=== PATIENT | female | born 1975 | race Caucasian/White ===

== ENCOUNTER 2017-01-01 11:55 | Emergency (ER) | payer MEDICAID ==
[2017-01-01 12:17] VITALS: BP 128/83
--- NOTE | 2017-01-01 13:29 | EDM.PDOC ---
ED HPI GENERAL MEDICAL PROBLEM - General Chief Complaint: Chest Pain Stated Complaint: [facility] Time Seen by Provider: 01/01/17 12:05 Source of Information: Reports: Patient, RN, RN Notes Reviewed History Limitations: Reports: Uncooperative - History of Present Illness INITIAL COMMENTS - FREE TEXT/NARRATIVE: When asked what brings the patient to the ED, the patient stated "I don't remember anything." When asked what was the last thing that she does remember, she stated that she remembers lying on her bed. When asked if she remembers how she got to the ED, she shrugged her shoulders, then said that her called EMS. When asked why, she said she did not know. EMS reported that the patient's called them due to the patient complaining of chest pain. When they arrived, they found the patient to be hyperventilating with an apparent anxiety attack. Here in the ED, she complained of chest pain rated 8/10, and a headache. At this time, the patient has no complaints. Information gathered later was that the patient was taking care of a 3-month- old infant, when apparently the baby lurched backwards. The baby cried incessantly. The patient contacted the baby's parents and instructed them to come and get the baby, as she was concerned that the baby may have "thrown her back out". The parents of the baby (who was brought to the ED) states that when they arrived, the baby was not crying, but that the patient was hysterical , and shortly after their arrival, the patient was taken by EMS to this hospital. There was concern by the babies parents at that perhaps the patient had harmed the baby. Right Chest Pain Score (Numeric/FACES): 8 Headache Pain Score (Numeric/FACES): 10 - Related Data Allergies Allergy/AdvReac Type Severity Reaction Status Date / Time venlafaxine HCl Allergy Intermediate Shaking Verified 07/29/16 21:39 [From Effexor] latex Allergy Unknown Hives Verified 01/01/17 12:17 Home Meds: Home Meds Amitriptyline [Elavil] 75 mg PO BEDTIME 12/22/13 [History] SUMAtriptan [Imitrex] 0 mg PO ONCALL PRN 12/03/15 [History] buPROPion HCl [Wellbutrin Xl] 300 mg PO DAILY 12/03/15 [History] Levothyroxine [Synthroid] 100 mcg PO DAILY 07/29/16 [History] Past Medical History HEENT History: Reports: Impaired Vision Other HEENT History: wears eyeglasses 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 RN History: Reports: Musculoskeletal History: Reports: Fracture Neurological History: Reports: Migraines Psychiatric History: Reports: Depression Endocrine/Metabolic History: Reports: Diabetes, Gestational, Hypothyroidism, Obesity/BMI 30+ Hematologic History: Reports: Anemia - Infectious Disease History Infectious Disease History: Reports: Chicken Pox - Past Surgical History HEENT Surgical History: Reports: Oral Surgery (Dental extractions) GI Surgical History: Reports: Cholecystectomy Female Surgical History: Reports: Breast Reduction, Tubal Ligation Musculoskeletal Surgical History: Reports: Arthroscopic Knee (bilateral) Social & Family History - Family History Family Medical History: Noncontributory - Tobacco Use Smoking Status *Q: Never Smoker - Caffeine Use Caffeine Use: Reports: None - Alcohol Use Alcohol Use History: Yes Alcohol Use Frequency: Rarely - Recreational Drug Use Recreational Drug Use: No - Living Situation & Occupation Living situation: Reports: , with Spouse, with Family (Daughter) 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) ED ROS GENERAL - Review of Systems Review Of Systems: See Below Constitutional: Reports: No Symptoms HEENT: Reports: No Symptoms Respiratory: Reports: No Symptoms Cardiovascular: Reports: No Symptoms Endocrine: Reports: No Symptoms GI/Abdominal: Reports: No Symptoms : Reports: No Symptoms Musculoskeletal: Reports: No Symptoms Skin: Reports: No Symptoms Neurological: Reports: No Symptoms Psychiatric: Reports: No Symptoms Hematologic/Lymphatic: Reports: No Symptoms Immunologic: Reports: No Symptoms ED EXAM, GENERAL - Physical Exam Exam: See Below Exam Limited By: No Limitations General Appearance: Alert, WD/WN, No Apparent Distress Eye Exam: Bilateral Eye: Normal Inspection Ears: Normal External Exam, Hearing Grossly Normal Ear Exam: Bilateral Ear: Auricle Normal Nose: Normal Inspection, No Blood Throat/Mouth: Normal Inspection, Normal Lips, Normal Voice, No Airway Compromise Head: Atraumatic, Normocephalic Neck: Normal Inspection, Full Range of Motion Respiratory/Chest: No Respiratory Distress, Lungs Clear, Normal Breath Sounds, No Accessory Muscle Use Cardiovascular: Normal Peripheral Pulses, Regular Rate, Rhythm, No Gallop, No JVD, No Murmur, No Rub Peripheral Pulses: 4+: Radial (L), Radial (R) GI/Abdominal: Normal Bowel Sounds, Soft, Non-Tender, No Organomegaly, No Distention, No Abnormal Bruit, No Mass, Other (Obese) (Female) Exam: Deferred Rectal (Female) Exam: Deferred Back Exam: Normal Inspection, Full Range of Motion, NT Extremities: Normal Inspection, Normal Range of Motion, No Pedal Edema, Normal Capillary Refill Neurological: Alert, Oriented, Normal Cognition, No Motor/Sensory Deficits Psychiatric: Flat Affect, Other (Speaks quietly, then suddenly speaks very loudly, almost yelling) Skin Exam: Warm, Dry, Intact, Normal Color, No Rash Lymphatic: No Adenopathy EKG INTERPRETATION EKG Date: 01/01/17 Time: 12:33 Rhythm: other (Sinus tachycardia) Rate (beats/min): 108 Orgas: normal P-wave: present QRS: normal ST-T: normal QT: normal Comparison: no change (12/07/2015) Course - Vital Signs Last Recorded V/S: Last Vital Signs Temp 37.4 C 01/01/17 12:12 Pulse 105 H 01/01/17 12:12 Resp 20 01/01/17 12:12 BP 128/83 01/01/17 12:12 Pulse Ox 97 01/01/17 12:12 Orthostatic Blood Pressure [ 108/74 Standing] Orthostatic Blood Pressure [ 125/90 Sitting] Orthostatic Blood Pressure [ 122/87 Supine] - Orders/Labs/Meds Orders: Active Orders 24 hr Category Date Time Status EKG Documentation Completion [RC] STAT Care 01/01/17 12:15 Active Orthostatic Vital Signs [RC] STAT Care 01/01/17 12:17 Active Orthostatic Vital Signs [RC] STAT Care 01/01/17 13:44 Active Labs: Laboratory Tests 01/01/17 01/01/17 01/01/17 Range/Units 12:16 13:05 13:05 WBC 7.49 (3.98-10.04) K/mm3 RBC 4.52 (3.98-5.22) M/mm3 Hgb 13.3 (11.2-15.7) gm/L Hct 40.2 (34.1-44.9) % MCV 88.9 (79.4-94.8) fl MCH 29.4 (25.6-32.2) pg MCHC 33.1 (32.2-35.5) g/dl RDW Std Deviation 47.1 H (36.4-46.3) fL Plt Count 254 (182-369) K/mm3 MPV 9.6 (9.4-12.3) fl Neutrophils % (Manual) 69 H (40-60) % Band Neutrophils % 3 (0-10) % Lymphocytes % (Manual) 16 L (20-40) % Atypical Lymphs % 0 % Monocytes % (Manual) 7 (2-10) % Eosinophils % (Manual) 4 (0.7-5.8) % Basophils % (Manual) 1 (0.1-1.2) Platelet Estimate See note RBC Morph Comment Normal PT 10.1 (8.0-13.0) SECONDS INR 0.93 APTT 25 (22-36) SECONDS D-Dimer, Quantitative 0.20 (0.19-0.59) mg/L Puncture Site Rt radial ABG pH 7.43 (7.35-7.45) ABG pCO2 32.3 L (35.0-45.0) mmHg ABG pO2 67.0 L (80.0-100.0) mmHg ABG HCO3 21.2 L (22.0-26.0) meq/L ABG O2 Saturation 95.1 L (96.0-97.0) % ABG Base Excess -1.8 (-2-2.0) Manuel Test Positive A-a Gradient 27 mmHg O2 Delivery Device Room air FiO2 21.00 (21.00-100.00) % Sodium (136-145) mEq/L Potassium (3.5-5.1) mEq/L Chloride (98-107) mEq/L Carbon Dioxide (21-32) mEq/L Anion Gap (5-15) BUN (7-18) mg/dL Creatinine (0.55-1.02) mg/dL Est Cr Clr Drug Dosing Estimated GFR (MDRD) (>60) mL/min BUN/Creatinine Ratio (14-18) Glucose (74-106) mg/dL Calcium (8.5-10.1) mg/dL Magnesium (1.8-2.4) mg/dl Total Bilirubin (0.2-1.0) mg/dL AST (15-37) U/L ALT (14-59) U/L Alkaline Phosphatase (46-116) U/L Troponin I (0.00-0.056) ng/mL B-Natriuretic Peptide (0-100) pg/mL Total Protein (6.4-8.2) g/dl Albumin (3.4-5.0) g/dl Globulin gm/dL Albumin/Globulin Ratio (1-2) TSH 3rd Generation (0.358-3.74) uIU/mL Urine Color (Yellow) Urine Appearance (Clear) Urine pH (5.0-8.0) Ur Specific Edelstein (1.005-1.030) Urine Protein (Negative) Urine Glucose (UA) (Negative) Urine Ketones (Negative) Urine Occult Blood (Negative) Urine Nitrite (Negative) Urine Bilirubin (Negative) Urine Urobilinogen (0.2-1.0) Ur Leukocyte Esterase (Negative) Urine RBC (0-5) /hpf Urine WBC (0-5) /hpf Ur Epithelial Cells Ur Squamous Epith Cells (0-5) /hpf Urine Bacteria (FEW) /hpf Urine Mucus (FEW) /hpf Urine HCG, Qual (NEGATIVE) 01/01/17 01/01/17 01/01/17 Range/Units 13:05 13:05 13:15 WBC (3.98-10.04) K/mm3 RBC (3.98-5.22) M/mm3 Hgb (11.2-15.7) gm/L Hct (34.1-44.9) % MCV (79.4-94.8) fl MCH (25.6-32.2) pg MCHC (32.2-35.5) g/dl RDW Std Deviation (36.4-46.3) fL Plt Count (182-369) K/mm3 MPV (9.4-12.3) fl Neutrophils % (Manual) (40-60) % Band Neutrophils % (0-10) % Lymphocytes % (Manual) (20-40) % Atypical Lymphs % % Monocytes % (Manual) (2-10) % Eosinophils % (Manual) (0.7-5.8) % Basophils % (Manual) (0.1-1.2) Platelet Estimate RBC Morph Comment PT (8.0-13.0) SECONDS INR APTT (22-36) SECONDS D-Dimer, Quantitative (0.19-0.59) mg/L Puncture Site ABG pH (7.35-7.45) ABG pCO2 (35.0-45.0) mmHg ABG pO2 (80.0-100.0) mmHg ABG HCO3 (22.0-26.0) meq/L ABG O2 Saturation (96.0-97.0) % ABG Base Excess (-2-2.0) Manuel Test A-a Gradient mmHg O2 Delivery Device FiO2 (21.00-100.00) % Sodium 140 (136-145) mEq/L Potassium 4.5 (3.5-5.1) mEq/L Chloride 105 (98-107) mEq/L Carbon Dioxide 26 (21-32) mEq/L Anion Gap 13.5 (5-15) BUN 9 (7-18) mg/dL Creatinine 0.9 (0.55-1.02) mg/dL Est Cr Clr Drug Dosing TNP Estimated GFR (MDRD) > 60 (>60) mL/min BUN/Creatinine Ratio 10.0 L (14-18) Glucose 99 (74-106) mg/dL Calcium 9.1 (8.5-10.1) mg/dL Magnesium 2.4 (1.8-2.4) mg/dl Total Bilirubin 0.3 (0.2-1.0) mg/dL AST 20 (15-37) U/L ALT 33 (14-59) U/L Alkaline Phosphatase 99 (46-116) U/L Troponin I < 0.017 (0.00-0.056) ng/mL B-Natriuretic Peptide < 15 (0-100) pg/mL Total Protein 7.9 (6.4-8.2) g/dl Albumin 3.5 (3.4-5.0) g/dl Globulin 4.4 gm/dL Albumin/Globulin Ratio 0.8 L (1-2) TSH 3rd Generation 3.568 (0.358-3.74) uIU/mL Urine Color (Yellow) Urine Appearance (Clear) Urine pH (5.0-8.0) Ur Specific Edelstein (1.005-1.030) Urine Protein (Negative) Urine Glucose (UA) (Negative) Urine Ketones (Negative) Urine Occult Blood (Negative) Urine Nitrite (Negative) Urine Bilirubin (Negative) Urine Urobilinogen (0.2-1.0) Ur Leukocyte Esterase (Negative) Urine RBC (0-5) /hpf Urine WBC (0-5) /hpf Ur Epithelial Cells Ur Squamous Epith Cells (0-5) /hpf Urine Bacteria (FEW) /hpf Urine Mucus (FEW) /hpf Urine HCG, Qual Negative (NEGATIVE) 01/01/17 Range/Units 13:15 WBC (3.98-10.04) K/mm3 RBC (3.98-5.22) M/mm3 Hgb (11.2-15.7) gm/L Hct (34.1-44.9) % MCV (79.4-94.8) fl MCH (25.6-32.2) pg MCHC (32.2-35.5) g/dl RDW Std Deviation (36.4-46.3) fL Plt Count (182-369) K/mm3 MPV (9.4-12.3) fl Neutrophils % (Manual) (40-60) % Band Neutrophils % (0-10) % Lymphocytes % (Manual) (20-40) % Atypical Lymphs % % Monocytes % (Manual) (2-10) % Eosinophils % (Manual) (0.7-5.8) % Basophils % (Manual) (0.1-1.2) Platelet Estimate RBC Morph Comment PT (8.0-13.0) SECONDS INR APTT (22-36) SECONDS D-Dimer, Quantitative (0.19-0.59) mg/L Puncture Site ABG pH (7.35-7.45) ABG pCO2 (35.0-45.0) mmHg ABG pO2 (80.0-100.0) mmHg ABG HCO3 (22.0-26.0) meq/L ABG O2 Saturation (96.0-97.0) % ABG Base Excess (-2-2.0) Manuel Test A-a Gradient mmHg O2 Delivery Device FiO2 (21.00-100.00) % Sodium (136-145) mEq/L Potassium (3.5-5.1) mEq/L Chloride (98-107) mEq/L Carbon Dioxide (21-32) mEq/L Anion Gap (5-15) BUN (7-18) mg/dL Creatinine (0.55-1.02) mg/dL Est Cr Clr Drug Dosing Estimated GFR (MDRD) (>60) mL/min BUN/Creatinine Ratio (14-18) Glucose (74-106) mg/dL Calcium (8.5-10.1) mg/dL Magnesium (1.8-2.4) mg/dl Total Bilirubin (0.2-1.0) mg/dL AST (15-37) U/L ALT (14-59) U/L Alkaline Phosphatase (46-116) U/L Troponin I (0.00-0.056) ng/mL B-Natriuretic Peptide (0-100) pg/mL Total Protein (6.4-8.2) g/dl Albumin (3.4-5.0) g/dl Globulin gm/dL Albumin/Globulin Ratio (1-2) TSH 3rd Generation (0.358-3.74) uIU/mL Urine Color Light yellow (Yellow) Urine Appearance Slt cloudy H (Clear) Urine pH 6.0 (5.0-8.0) Ur Specific Edelstein 1.010 (1.005-1.030) Urine Protein Negative (Negative) Urine Glucose (UA) Negative (Negative) Urine Ketones Negative (Negative) Urine Occult Blood 3+ H (Negative) Urine Nitrite Negative (Negative) Urine Bilirubin Negative (Negative) Urine Urobilinogen 0.2 (0.2-1.0) Ur Leukocyte Esterase 1+ H (Negative) Urine RBC 20-30 H (0-5) /hpf Urine WBC 5-10 H (0-5) /hpf Ur Epithelial Cells Not Reportable Ur Squamous Epith Cells 10-20 H (0-5) /hpf Urine Bacteria Few (FEW) /hpf Urine Mucus Not seen (FEW) /hpf Urine HCG, Qual (NEGATIVE) Meds: Medications Discontinued Medications Generic Name Dose Route Start Last Admin Trade Name Freq PRN Reason Stop Dose Admin Sodium Chloride 1,000 mls @ 999 mls/hr 01/01/17 13:44 01/01/17 14:03 Normal Saline IV 01/01/17 14:44 999 mls/hr ONETIME ONE Administration - Radiology Interpretation Free Text/Narrative:: Two-view chest radiograph appears to be grossly normal. Cardiac silhouette is within normal limits. No pulmonary vascular congestion. No pleural effusions. No focal infiltrate. No pneumothorax. Formal read per the Radiologist pending. - Re-Assessments/Exams Free Text/Narrative Re-Assessment/Exam: 01/01/17 13:42 Based on a drop of diastolic pressure from 87 to 74 between supine and standing positions, the patient is orthostatic. I will order an IV fluid bolus and repeat the orthostatics. 01/01/17 14:44 The patient's urinalysis is consistent with contamination, not a UTI. 01/01/17 15:52 Repeat orthostatics, following 1 L of normal saline, are negative. Departure - Departure Time of Disposition: 15:55 Disposition: Home, Self-Care 01 Condition: good Clinical Impression: Hyperventilation syndrome - Discharge Information Referrals: PCP,None [Primary Care Provider] - Berna Blackburn NP [Ordering Only Provider] - Forms: ED Department Discharge Additional Instructions: You were seen in the emergency room today for chest pain and anxiety. Workup in the ER included blood work, a urinalysis, a urine test, an ABG, a chest x-ray, an ECG, and positional blood pressure checks. The ABG confirms that you were hyperventilating, which is usually caused by anxiety, although can be caused by a variety of medical conditions including metabolic acidosis, hypocalcemia, hypoglycemia, hyperthyroidism, liver failure, severe anemia, sepsis, acute coronary event, pneumothorax, pneumonia, dysrhythmia, PE, and CHF. These have been ruled out. Your hyperventilation was MOST LIKELY caused by anxiety. We recommend that you notify your PCP, Su Blackburn, of your ER visit this coming 01/04/2017. In the meantime, continue to take your usual medications as prescribed. If any other problems, please do not hesitate to return to the ER. - My Orders Last 24 Hours: My Active Orders 01/01/17 12:15 EKG Documentation Completion [RC] STAT 01/01/17 12:17 Orthostatic Vital Signs [RC] STAT 01/01/17 13:44 Orthostatic Vital Signs [RC] STAT - Assessment/Plan Last 24 Hours: My Active Orders 01/01/17 12:15 EKG Documentation Completion [RC] STAT 01/01/17 12:17 Orthostatic Vital Signs [RC] STAT 01/01/17 13:44 Orthostatic Vital Signs [RC] STAT
--- NOTE | 2017-01-01 13:41 | CR ---
Chest: Two views of the chest were obtained. Comparison: Previous chest x-ray of 12/03/15. Heart size and mediastinum are within normal limits for AP technique. Lungs are clear. Bony structures appear within normal limits for the patient's age. Impression: 1. Nothing acute is identified on two-view chest x-ray. Diagnostic code #1
[2017-01-01] MEDS ORDERED: Sodium Chloride 0.9% 1,000 ML IV ONE (13:44)
== END 2017-01-01 16:40 | disposition home or self-care (01) ==
LOC: JD.ED 11:55
DX: F45.8 Other somatoform disorders (principal); F32.9 Major depressive disorder, single episode, unspecified; E03.9 Hypothyroidism, unspecified; E66.9 Obesity, unspecified; D64.9 Anemia, unspecified; Z79.899 Other long term (current) drug therapy; Z88.8 Allergy status to other drugs, medicaments and biological substances; Z91.040 Latex allergy status; Z90.49 Acquired absence of other specified parts of digestive tract; Z98.890 Other specified postprocedural states
CPT/HCPCS: 36415; 36600; 71020; 80053; 81001; 81025; 82803; 83735; 83880; 84443; 84484; 85025; 85379; 85610; 85730; 93005; 96360; 99285; J7040; 99283

== ENCOUNTER 2017-02-21 06:26 | Emergency (ER) | payer MEDICAID ==
--- NOTE | 2017-02-21 07:00 | EDM.PDOC ---
ED HPI GENERAL MEDICAL PROBLEM - General Chief Complaint: Headache Stated Complaint: [facility] Time Seen by Provider: 02/21/17 07:00 - History of Present Illness INITIAL COMMENTS - FREE TEXT/NARRATIVE: 41-year-old female presents emergency room with a headache. Headache started about 1:00 this morning is a typical migraine for she cannot recall which side it started on his awoke her out. She developed a headache in the back of her head with significant nausea and vomiting mostly dry heaves she has some photophobia. She tried her Imitrex with no relief. She denies any fevers since mild chills typically she gets these with her migraines. Patient denies any other vision changes. No neck pain. She has some abdominal discomfort from vomiting this occurs just before and after throwing up but then resolves. Headache Pain Score (Numeric/FACES): 9 - Related Data Allergies Allergy/AdvReac Type Severity Reaction Status Date / Time venlafaxine HCl Allergy Intermediate Shaking Verified 02/21/17 07:05 [From Effexor] latex Allergy Unknown Hives Verified 02/21/17 07:05 Home Meds: Home Meds Amitriptyline [Elavil] 75 mg PO BEDTIME 12/22/13 [History] SUMAtriptan [Imitrex] 0 mg PO ONCALL PRN 12/03/15 [History] buPROPion HCl [Wellbutrin Xl] 300 mg PO DAILY 12/03/15 [History] Levothyroxine [Synthroid] 100 mcg PO DAILY 07/29/16 [History] Past Medical History HEENT History: Reports: Impaired Vision Other HEENT History: wears eyeglasses Genitourinary History: Reports: UTI, Recurrent [employer] History: Reports: Musculoskeletal History: Reports: Fracture Neurological History: Reports: Migraines Psychiatric History: Reports: Depression Endocrine/Metabolic History: Reports: Diabetes, Gestational, Hypothyroidism, Obesity/BMI 30+ Hematologic History: Reports: Anemia - Infectious Disease History Infectious Disease History: Reports: Chicken Pox - Past Surgical History HEENT Surgical History: Reports: Oral Surgery (Dental extractions) GI Surgical History: Reports: Cholecystectomy Female Surgical History: Reports: Breast Reduction, Tubal Ligation Musculoskeletal Surgical History: Reports: Arthroscopic Knee (bilateral) Social & Family History - Family History Family Medical History: Noncontributory - Tobacco Use Smoking Status *Q: Never Smoker - Caffeine Use Caffeine Use: Reports: None - Recreational Drug Use Recreational Drug Use: No - Living Situation & Occupation Living situation: Reports: , with Spouse, with Family (Daughter) 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 Denies: Ear Pain, Eye Pain, Rhinitis, Sinus Problem, Throat Pain, Vision Change Respiratory: Reports: No Symptoms Cardiovascular: Reports: No Symptoms GI/Abdominal: Reports: Abdominal Pain (From vomiting), Vomiting. Denies: Constipation, Diarrhea : Reports: No Symptoms Musculoskeletal: Reports: No Symptoms Neurological: Reports: Dizziness, Headache Psychiatric: Reports: No Symptoms ED EXAM, GENERAL - Physical Exam Exam: See Below Exam Limited By: No Limitations General Appearance: Alert, No Apparent Distress Eye Exam: Bilateral Eye: EOMI, Normal Inspection, PERRL Ears: Normal External Exam, Normal Canal, Hearing Grossly Normal, Normal TMs Nose: Normal Inspection, Normal Mucosa, No Blood. No: Nasal Tenderness, Clear Rhinorrhea Throat/Mouth: Normal Inspection, Normal Lips, Normal Teeth, Normal Gums, Normal Oropharynx, Normal Voice, No Airway Compromise Head: Atraumatic, Normocephalic Neck: Normal Inspection, Supple, Non-Tender, Full Range of Motion Respiratory/Chest: No Respiratory Distress, Lungs Clear, Normal Breath Sounds Cardiovascular: Regular Rate, Rhythm, No Edema, No Murmur GI/Abdominal: Normal Bowel Sounds, Soft, Non-Tender Neurological: Other (Cranial nerves II-12 grossly intact all muscle groups the upper and lower extremities recall appropriate bilaterally. Deep tendon reflexes at the brachial radialis and patella tendons are equal and appropriate bilaterally. Cerebellar testing is entirely within normal limits) Course - Vital Signs Last Recorded V/S: Last Vital Signs Temp 36.3 C 02/21/17 06:26 Pulse 89 02/21/17 06:26 Resp 16 02/21/17 06:26 BP 122/85 02/21/17 06:26 Pulse Ox 99 02/21/17 06:26 - Orders/Labs/Meds Meds: Medications Discontinued Medications Generic Name Dose Route Start Last Admin Trade Name Freq PRN Reason Stop Dose Admin Diphenhydramine HCl 50 mg 02/21/17 07:08 02/21/17 07:51 Benadryl IVPUSH 02/21/17 07:09 50 mg ONETIME ONE Administration Lactated Ringer's 1,000 mls @ 999 mls/hr 02/21/17 07:08 02/21/17 07:50 Ringers, Lactated IV 02/21/17 08:08 999 mls/hr .BOLUS ONE Administration Ondansetron HCl 4 mg 02/21/17 07:08 02/21/17 07:51 Zofran IVPUSH 02/21/17 07:09 4 mg ONETIME ONE Administration - Re-Assessments/Exams Free Text/Narrative Re-Assessment/Exam: 02/21/17 08:41 Patient received a bolus of LR, most of this is in at this point she also received Zofran and IV Benadryl. At this time her pain is at least 80% better. She feels comfortable to go home and rest. Departure - Departure Time of Disposition: 08:42 Disposition: Home, Self-Care 01 Clinical Impression: Migraine - Discharge Information Additional Instructions: Return to the emergency room with any questions problems or worsening symptoms. Go home and sleep this off. Follow-up with your regular provider if needed.
[2017-02-21 07:05] VITALS: BP 122/85
[2017-02-21] MEDS ORDERED: Ondansetron 4 MG/2 ML SDV IVPUSH ONE (07:08)
[2017-02-21] MEDS ORDERED: Lactated Ringers 1,000 ML IV ONE (07:08)
[2017-02-21] MEDS ORDERED: diphenhydrAMINE 50 MG/ML SDV IVPUSH ONE (07:08)
== END 2017-02-21 08:56 | disposition home or self-care (01) ==
LOC: JD.ED 06:26
DX: G43.909 Migraine, unspecified, not intractable, without status migrainosus (principal); E03.9 Hypothyroidism, unspecified; E66.9 Obesity, unspecified; Z86.2 Personal history of diseases of the blood and blood-forming organs and certain disorders involving the immune mechanism; Z90.49 Acquired absence of other specified parts of digestive tract; Z91.040 Latex allergy status; Z88.8 Allergy status to other drugs, medicaments and biological substances; Z79.899 Other long term (current) drug therapy; Z87.440 Personal history of urinary (tract) infections; Z68.36 Body mass index [BMI] 36.0-36.9, adult; Z98.51 Tubal ligation status
CPT/HCPCS: 96361; 96374; 96375; 99284; J1200; J2405; J7120; 99283

== ENCOUNTER 2017-06-08 14:11 | Emergency (ER) | payer MEDICAID ==
[2017-06-08 14:26] VITALS: BP 128/89
--- NOTE | 2017-06-08 14:49 | EDM.PDOC ---
ED HPI GENERAL MEDICAL PROBLEM - General Chief Complaint: Laceration Stated Complaint: LEFT POINTER FINGER LAC Time Seen by Provider: 06/08/17 14:31 Source of Information: Reports: Patient History Limitations: Reports: No Limitations - History of Present Illness INITIAL COMMENTS - FREE TEXT/NARRATIVE: Patient is a 42-year-old female who accidentally suffered a laceration to the medial aspect of the left index finger along the PIP when a bowl broke and the glass cut her. This is 2 days old. Pain is mild in nature. Has full range of motion. No sensory deficits distally. She is concerned that maybe this site is infected. There is some mild redness present with no drainage noted. Redness is localized. Tetanus status not up-to-date. Left Hand Pain Score (Numeric/FACES): 6 - Related Data Allergies Allergy/AdvReac Type Severity Reaction Status Date / Time venlafaxine HCl Allergy Intermediate Shaking Verified 02/21/17 07:05 [From Effexor] latex Allergy Unknown Hives Verified 02/21/17 07:05 Home Meds: Home Meds Amitriptyline [Elavil] 75 mg PO BEDTIME 12/22/13 [History] SUMAtriptan [Imitrex] 0 mg PO ONCALL PRN 12/03/15 [History] buPROPion HCl [Wellbutrin Xl] 300 mg PO DAILY 12/03/15 [History] Levothyroxine [Synthroid] 100 mcg PO DAILY 07/29/16 [History] Escitalopram [Lexapro] 10 mg PO DAILY 06/08/17 [History] Past Medical History HEENT History: Reports: Impaired Vision Other HEENT History: wears eyeglasses Genitourinary History: Reports: UTI, Recurrent 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: Musculoskeletal History: Reports: Fracture Neurological History: Reports: Migraines Psychiatric History: Reports: Depression Endocrine/Metabolic History: Reports: Diabetes, Gestational, Hypothyroidism, Obesity/BMI 30+ Hematologic History: Reports: Anemia - Infectious Disease History Infectious Disease History: Reports: Chicken Pox - Past Surgical History HEENT Surgical History: Reports: Oral Surgery GI Surgical History: Reports: Cholecystectomy Female Surgical History: Reports: Breast Reduction, Tubal Ligation Musculoskeletal Surgical History: Reports: Arthroscopic Knee Social & Family History - Family History Family Medical History: Noncontributory - Tobacco Use Smoking Status *Q: Never Smoker - Caffeine Use Caffeine Use: Reports: Coffee - Recreational Drug Use Recreational Drug Use: No - Living Situation & Occupation Living situation: Reports: , with Spouse, with Family (Daughter) 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 ED EXAM, SKIN/RASH Exam: See Below Exam Limited By: No Limitations General Appearance: Alert, WD/WN, No Apparent Distress Ears: Hearing Grossly Normal Nose: Normal Inspection Throat/Mouth: Normal Voice, No Airway Compromise Neck: Normal Inspection, Supple Respiratory/Chest: No Respiratory Distress, No Accessory Muscle Use Cardiovascular: Normal Peripheral Pulses, Regular Rate, Rhythm Peripheral Pulses: 2+: Radial (L) Extremities: Other (1 cm laceration to the left index finger along the medial aspect of the PIP. No sensory/motor deficits distally. Patient is able to flex and extend all joints of the finger with no issues. Minimal pain present. Mild redness noted to the distal border of the laceration site no drainage noted.) Neurological: Alert, Oriented, Normal Cognition, No Motor/Sensory Deficits Psychiatric: Normal Affect, Normal Mood Skin: Warm, Dry, Normal Color Course - Vital Signs Last Recorded V/S: Last Vital Signs Temp 98.7 F 06/08/17 14:23 Pulse 110 H 06/08/17 14:23 Resp 16 06/08/17 14:23 BP 128/89 06/08/17 14:23 Pulse Ox 95 06/08/17 14:23 - Re-Assessments/Exams Free Text/Narrative Re-Assessment/Exam: Laceration to left index finger along the medial aspect of the PIP. Wound edges approximated well with scab present. No drainage noted. Minimal redness to the distal aspect of the wound site. May be early onset of infection but at this point no oral antibiotics required. Will have nursing staff place bacitracin to the affected area with bandage. Will discharge patient home with instructions as documented. Departure - Departure Time of Disposition: 14:57 Disposition: Home, Self-Care 01 Condition: Good Clinical Impression: Laceration of finger of left hand with complication Qualifiers: Encounter type: initial encounter Qualified Code(s): S61.412A - Laceration without foreign body of left hand, initial encounter - Discharge Information Referrals: Berna Blackburn, ONLINE MARKETING SPECIALIST [Primary Care Provider] - Additional Instructions: Continue to monitor laceration to the left index finger. Cleanse site twice daily with soap and water, pat dry, reapply to plan about equipment keep area clean and dry. At this point no oral antibiotics required. Monitor for any changes follow-up with PCP as needed.
[2017-06-08] MEDS ORDERED: Diphtheria,Pertussis(Acell),Tetanus Vaccine 0.5 ML SDV IM ONE (14:58)
== END 2017-06-08 15:19 | disposition home or self-care (01) ==
LOC: JD.ED 14:11
DX: S61.211A Laceration without foreign body of left index finger without damage to nail, initial encounter (principal); Z23 Encounter for immunization; F32.9 Major depressive disorder, single episode, unspecified; E03.9 Hypothyroidism, unspecified; E66.9 Obesity, unspecified; Z86.2 Personal history of diseases of the blood and blood-forming organs and certain disorders involving the immune mechanism; Z90.49 Acquired absence of other specified parts of digestive tract; Z98.51 Tubal ligation status; Z98.890 Other specified postprocedural states; Z79.899 Other long term (current) drug therapy; Z88.8 Allergy status to other drugs, medicaments and biological substances; Z91.040 Latex allergy status; W25.XXXA Contact with sharp glass, initial encounter
CPT/HCPCS: 90471; 90715; 99282; 99283-25

== ENCOUNTER 2018-01-03 16:24 | Emergency (ER) | payer MEDICAID ==
[2018-01-03 16:46] VITALS: BP 126/90
--- NOTE | 2018-01-03 17:50 | EDM.PDOC ---
ED HPI GENERAL MEDICAL PROBLEM - General Chief Complaint: Lower Extremity Injury/Pain Stated Complaint: INJURED RIGHT ANKLE Time Seen by Provider: 01/03/18 17:05 Source of Information: Reports: Patient History Limitations: Reports: No Limitations - History of Present Illness INITIAL COMMENTS - FREE TEXT/NARRATIVE: Patient was at work today and actually rolled her ankle. She complains of pain to the right lateral medial aspect of the ankle. With increased swelling noted to the lateral aspect. Decreased range of motion secondary to pain. Able to ambulate on the affected extremity with a limp present. No pain proximally. Denies any pain to the knee, foot, or toes. Right Ankle Pain Score (Numeric/FACES): 9 - Related Data Allergies Allergy/AdvReac Type Severity Reaction Status Date / Time venlafaxine HCl Allergy Intermediate Shaking Verified 02/21/17 07:05 [From Effexor] latex Allergy Unknown Hives Verified 02/21/17 07:05 Home Meds: Home Meds Amitriptyline [Elavil] 75 mg PO BEDTIME 12/22/13 [History] SUMAtriptan [Imitrex] 0 mg PO ONCALL PRN 12/03/15 [History] buPROPion HCl [Wellbutrin Xl] 300 mg PO DAILY 12/03/15 [History] Levothyroxine [Synthroid] 100 mcg PO DAILY 07/29/16 [History] Escitalopram [Lexapro] 10 mg PO DAILY 06/08/17 [History] Past Medical History HEENT History: Reports: Impaired Vision Other HEENT History: wears eyeglasses Genitourinary History: Reports: UTI, 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: Musculoskeletal History: Reports: Fracture Neurological History: Reports: Migraines Psychiatric History: Reports: Depression Endocrine/Metabolic History: Reports: Diabetes, Gestational, Hypothyroidism, Obesity/BMI 30+ Hematologic History: Reports: Anemia - Infectious Disease History Infectious Disease History: Reports: Chicken Pox - Past Surgical History HEENT Surgical History: Reports: Oral Surgery GI Surgical History: Reports: Cholecystectomy Female Surgical History: Reports: Breast Reduction, Tubal Ligation Musculoskeletal Surgical History: Reports: Arthroscopic Knee Social & Family History - Family History Family Medical History: Noncontributory - Tobacco Use Smoking Status *Q: Never Smoker - Caffeine Use Caffeine Use: Reports: Coffee, Soda, Tea - Recreational Drug Use Recreational Drug Use: No - Living Situation & Occupation Living situation: Reports: , with Spouse, with Family (Daughter) 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 ED EXAM, GENERAL - Physical Exam Exam: See Below Exam Limited By: No Limitations General Appearance: Alert, WD/WN, No Apparent Distress Ears: Hearing Grossly Normal Nose: Normal Inspection Throat/Mouth: Normal Voice, No Airway Compromise Neck: Normal Inspection, Supple Respiratory/Chest: No Respiratory Distress, No Accessory Muscle Use Cardiovascular: Normal Peripheral Pulses, Regular Rate, Rhythm Peripheral Pulses: 4+: Posterior Tibial (R), Dorsalis Pedis (R) Extremities: Other (Increased swelling to the lateral aspect of the right ankle with increased pain with palpation and with any type of movement. No pain noted today metatarsals and ordered phalanges. No pain noted superior aspect of the fibula or distal aspect of the tibia.) Neurological: Alert, Oriented, CN II-XII Intact, Normal Cognition, No Motor/ Sensory Deficits Course - Vital Signs Last Recorded V/S: Last Vital Signs Temp 99.8 F 01/03/18 16:43 Pulse 108 H 01/03/18 16:43 Resp 18 01/03/18 16:43 BP 126/90 01/03/18 16:43 Pulse Ox 100 01/03/18 16:43 - Re-Assessments/Exams Free Text/Narrative Re-Assessment/Exam: Order x-ray of the right ankle. X-ray of the right ankle reveals soft tissue swelling. Questionable small avulsion fractur. Final interpretation is pending. I have ordered crutches and also walking boot applied. The charge instructions as documented. The patient remained hemodynamically stable while under my care in the E.D. I discussed the concerning symptoms for which to return to the E.D. with the patient/family. The patient/family verbalized understanding. All questions were answered. Departure - Departure Time of Disposition: 17:48 Disposition: Home, Self-Care 01 Condition: Good Clinical Impression: Sprain of right ankle Qualifiers: Encounter type: initial encounter Involved ligament of ankle: unspecified ligament Qualified Code(s): S93.401A - Sprain of unspecified ligament of right ankle, initial encounter Avulsion fracture of ankle Qualifiers: Encounter type: initial encounter Fracture type: closed Laterality: right Qualified Code(s): S82.891A - Other fracture of right lower leg, initial encounter for closed fracture - Discharge Information Instructions: Crutch Use, Adult, [id number], Ankle Sprain, Walking Boot, Adult Referrals: Berna Blackburn INTERNIST MEDICAL DOCTOR MD [Primary Care Provider] - Sergio Pacheco MD [Physician] - Mahamed Rollins MD [Physician] - Forms: ED Department Discharge, ED Return to Work/School Form Additional Instructions: You are to be non weightbearing wearing the walking boot and utilize crutches to ambulate. Toe-touch only for balance. Elevate when able to reduce any swelling and pain. Apply ice to affected area 4 times daily, 30 minutes duration , do not apply ice directly on the skin. Take Tylenol and ibuprofen in alternating fashion for pain. Please call and make an appointment to be seen by orthopedic surgeon in 7-10 days for reevaluation. Return to the ED if you develop any new or worsening symptoms.
--- NOTE | 2018-01-04 07:28 | CR ---
Right ankle: Four views of the right ankle were obtained. Comparison: No previous study. Plantar spur is noted. Mild cystic change is noted within the talar dome believed to represent degenerative change from old injury. Mild soft tissue swelling is noted. No acute bony abnormality is seen. Impression: 1. Soft tissue swelling. 2. Incidental plantar spur. 3. Cystic change which is felt to be degenerative in etiology within the talar dome. Diagnostic code #3
== END 2018-01-03 18:05 | disposition home or self-care (01) ==
LOC: JD.ED 16:24
DX: S82.891A Other fracture of right lower leg, initial encounter for closed fracture (principal); S93.401A Sprain of unspecified ligament of right ankle, initial encounter; Z88.8 Allergy status to other drugs, medicaments and biological substances; Z91.040 Latex allergy status; Z79.899 Other long term (current) drug therapy; X58.XXXA Exposure to other specified factors, initial encounter; Y99.0 Civilian activity done for income or pay
CPT/HCPCS: 73610-26-RT; 73610-RT; 99283

== ENCOUNTER 2018-03-11 07:17 | Emergency (ER) | payer MEDICAID, OTHER ==
[2018-03-11 07:36] VITALS: BP 154/98
--- NOTE | 2018-03-11 09:24 | EDM.PDOC ---
ED HPI GENERAL MEDICAL PROBLEM - General Chief Complaint: Lower Extremity Injury/Pain Stated Complaint: R ANKLE INJURY Time Seen by Provider: 03/11/18 07:44 Source of Information: Reports: Patient History Limitations: Reports: No Limitations - History of Present Illness INITIAL COMMENTS - FREE TEXT/NARRATIVE: The patient states that she jumped over a desk at work, when a fire alarm went off this morning. She states that she landed only on her right foot, injuring her right ankle. She reports pain in a band-like distribution around her right ankle. She is otherwise uninjured. PSHx/SocHx per the RN. Right Ankle Pain Score (Numeric/FACES): 8 - Related Data Allergies Allergy/AdvReac Type Severity Reaction Status Date / Time venlafaxine HCl Allergy Intermediate Shaking Verified 03/11/18 07:36 [From Effexor] latex Allergy Unknown Hives Verified 03/11/18 07:36 Home Meds: Home Meds Amitriptyline [Elavil] 75 mg PO BEDTIME 12/22/13 [History] SUMAtriptan [Imitrex] 0 mg PO ONCALL PRN 12/03/15 [History] buPROPion HCl [Wellbutrin Xl] 300 mg PO DAILY 12/03/15 [History] Levothyroxine [Synthroid] 100 mcg PO DAILY 07/29/16 [History] Escitalopram [Lexapro] 10 mg PO DAILY 06/08/17 [History] Past Medical History HEENT History: Reports: Impaired Vision Other HEENT History: wears eyeglasses 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: Neurological History: Reports: Migraines Psychiatric History: Reports: Anxiety, Depression Endocrine/Metabolic History: Reports: Diabetes, Gestational, Hypothyroidism, Obesity/BMI 30+ Hematologic History: Reports: Anemia - Infectious Disease History Infectious Disease History: Reports: Chicken Pox - Past Surgical History HEENT Surgical History: Reports: Oral Surgery GI Surgical History: Reports: Cholecystectomy Female Surgical History: Reports: Breast Reduction, Tubal Ligation Musculoskeletal Surgical History: Reports: Arthroscopic Knee Social & Family History - Family History Family Medical History: Noncontributory - Tobacco Use Smoking Status *Q: Never Smoker - Caffeine Use Caffeine Use: Reports: Coffee, Soda, Tea - Recreational Drug Use Recreational Drug Use: No - Living Situation & Occupation Living situation: Reports: , with Spouse, with Family (Daughter) 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 ED EXAM, GENERAL - Physical Exam Exam: See Below Exam Limited By: No Limitations General Appearance: Alert, WD/WN, No Apparent Distress Extremities: Other (There is significant swelling to the lateral aspect of the patient's right ankle, although with no associated ecchymosis or abrasion. There is tenderness to the lateral aspect of the ankle, primarily, less tender to the anterior or posterior syndesmoses or medial malleolus. Neurovascular status of the right lower extremity is intact.) Course - Vital Signs Last Recorded V/S: Last Vital Signs Temp 36.6 C 03/11/18 07:33 Pulse 94 03/11/18 07:33 Resp 16 03/11/18 07:33 BP 154/98 H 03/11/18 07:33 Pulse Ox 97 03/11/18 07:33 - Re-Assessments/Exams Free Text/Narrative Re-Assessment/Exam: 03/11/18 09:13 4-view radiographs of the right ankle appear to demonstrate likely arthritic changes in the talo-tibial joint. A plantar spur is noted, also seen on the radiograph from 03/09/2018. No other bony injuries, such as fracture or dislocation are seen. 03/11/18 09:24 X-ray results discussed with the patient and her mother. The patient states that she already has a Aircast, therefore does not need a new one. I will have the patient elevate her right ankle and ice it for 2 days, which she states she will be able to do, even at work. She states that she does not need a note for work. I will have her wear the Aircast for 1 week, then begin ambulating without it, even though she will likely still be sore. I'm recommending she take [id number] ibuprofen. The patient already has a referral to Dr. Rollins, who I will have her follow-up with, should her ankle not improve. Departure - Departure Time of Disposition: 09:30 Disposition: Home, Self-Care 01 Condition: Good Clinical Impression: Right ankle sprain Qualifiers: Encounter type: initial encounter Involved ligament of ankle: unspecified ligament Qualified Code(s): S93.401A - Sprain of unspecified ligament of right ankle, initial encounter - Discharge Information *PRESCRIPTION DRUG MONITORING PROGRAM REVIEWED*: Not Applicable *COPY OF PRESCRIPTION DRUG MONITORING REPORT IN PATIENT RAYNE: Not Applicable Instructions: Ankle Sprain, [id number] Referrals: Sybil Shepard MD [Primary Care Provider] - Mahamed Rollins MD [Physician] - Forms: ED Department Discharge Additional Instructions: You were seen in the emergency room after injuring your right ankle at work. Workup in the ER included x-rays of your right ankle, which showed no new bony injury, such as a fracture or dislocation. Based on your history and physical examination, you have sprained your right ankle. Ice and elevate your right ankle is much as possible over the next 2 days, to help minimize swelling. You already have an Aircast at home. Put it on in the morning, wear it all day, and remove it at bedtime, for one week. After that, begin walking on your right ankle, as tolerated. Take [id number] ibuprofen as needed for discomfort. If you do not have substantial improvement in your right ankle within 2 weeks, please follow-up with the Orthopedic Surgeon Dr. Mahamed Rollins. If any other problems, please do not hesitate to return to the ER.
--- NOTE | 2018-03-11 09:59 | CR ---
Right ankle: Four views of the right ankle were obtained. Plantar spur is seen. Small soft tissue calcification is seen next to the plantar spur. Small calcification also noted posteriorly next to the posterior talus which is incidental. Small calcification is also seen off the medial malleolus compatible with old injury. Soft tissue swelling is noted laterally. No acute fracture or other bony abnormality is seen. Impression: 1. Soft tissue swelling. 2. Other incidental findings. No acute fracture is appreciated. Diagnostic code #2
== END 2018-03-11 09:51 | disposition home or self-care (01) ==
LOC: JD.ED 07:17
DX: S93.401A Sprain of unspecified ligament of right ankle, initial encounter (principal); E66.9 Obesity, unspecified; E03.9 Hypothyroidism, unspecified; Z91.040 Latex allergy status; Z88.8 Allergy status to other drugs, medicaments and biological substances; Z79.899 Other long term (current) drug therapy; X50.9XXA Other and unspecified overexertion or strenuous movements or postures, initial encounter; Y93.39 Activity, other involving climbing, rappelling and jumping off
CPT/HCPCS: 73610-26-RT; 73610-RT; 99283

== ENCOUNTER 2019-06-13 13:56 | Emergency (ER) | payer MEDICAID, OTHER ==
[2019-06-13 14:04] VITALS: BP 131/79; PULSE 72
[2019-06-13] MEDS ORDERED: Ondansetron 4 MG/2 ML SDV IVPUSH ONE (14:38)
[2019-06-13] MEDS ORDERED: HYDROmorphone 1 MG/ML Syringe IVPUSH STA (14:38)
[2019-06-13] MEDS ORDERED: Iopamidol 612 MG/ML 100 ML Bottle IVPUSH ONE (14:45)
[2019-06-13] MEDS ORDERED: Sodium Chloride 0.9% 1,000 ML IV SCH (14:45)
[2019-06-13] MEDS ORDERED: Diatrizoate Meglumine/Diatrizoate Sodium 37% 120 ML Bottle PO ONE (14:45)
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
[2019-06-13] MEDS: Sodium Chloride 0.9% 10 ML Syringe FLUSH ONE ×2 (15:42→17:00)
--- NOTE | 2019-06-13 17:34 | CT ---
CT abdomen and pelvis Technique: Multiple axial sections were obtained from above the dome of the diaphragm inferiorly through the pubic symphysis. Intravenous and oral contrast was utilized. Delayed images were obtained through the bladder. Comparison: Prior CT abdomen and pelvis exam of 10/24/13. Findings: Visualized lung bases show nothing acute. Liver contains no focal abnormality. Spleen appears within normal limits. Adrenal glands show no nodule. Pancreas is within normal limits. Surgical clips are seen from prior cholecystectomy. Kidneys show symmetric contrast enhancement. No hydronephrosis is seen. Prior study showed a cyst within the right kidney. Very minimal low density finding is seen in this area but the majority of the finding is no longer identified. Delayed images shows contrast within the distal ureters as well as contrast being seen within the bladder. Aorta shows no aneurysm. No retroperitoneal adenopathy or mesenteric abnormalities are seen. No pelvic mass or adenopathy is seen. Appendix is seen which is normal in size. No free fluid or inflammatory change is seen. Bone window settings were reviewed which shows mild scoliosis. No acute osseous finding is seen. Impression: 1. Findings which are felt to be incidental as noted above. 2. Nothing acute is appreciated on CT study of the abdomen and pelvis. Diagnostic code #2
== END 2019-06-13 18:33 | disposition home or self-care (01) ==
LOC: JD.ED 13:56
DX: R10.31 Right lower quadrant pain (principal); R10.32 Left lower quadrant pain; I10 Essential (primary) hypertension; E66.9 Obesity, unspecified; E03.9 Hypothyroidism, unspecified; F32.9 Major depressive disorder, single episode, unspecified; Z91.040 Latex allergy status; Z88.8 Allergy status to other drugs, medicaments and biological substances; Z79.899 Other long term (current) drug therapy; Z68.30 Body mass index [BMI] 30.0-30.9, adult; Z79.890 Hormone replacement therapy
CPT/HCPCS: 36415; 74177; 80053; 81001; 84703; 85007; 85027; 87086; 96361; 96374; 96375; 99284; J1170; J2405; J7040; Q9963; Q9967